=== PATIENT | male | born 1960 | race Caucasian/White ===

== ENCOUNTER 2017-02-05 09:28 | Emergency (ER) | payer SELFPAY ==
[~2017-02-05] VITALS: Ht 175.3 cm; Wt 77.0 kg
[2017-02-05 09:30] VITALS: BP 138/83; PULSE 56; RESP 20; TEMP 97.7; O2SAT 99
--- NOTE | 2017-02-05 09:55 | PD ---
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 Patient has minimal pain or discomfort. He is here mainly for a tetanus shot. He states the nail was quite dk. It did go through the sneaker and sock. He has no known drug allergies. [facility] Social History Alcohol Use: Yes Tobacco Use: Yes Substance Use: No Allergies-Medications (Allergen,Severity, Reaction): Coded Allergies: No Known Allergies (Unverified , 02/05/17) Reported Meds & Prescriptions Reported Meds & Active Scripts Active No Active Prescriptions or Reported Medications Review of Systems Except as stated in HPI: all other systems reviewed are Neg General / Constitutional: No: Fever Eyes: No: Visual changes HENT: No: Headaches Cardiovascular: No: Chest Pain or Discomfort Respiratory: No: Shortness of Breath Gastrointestinal: No: Abdominal Pain Genitourinary: No: Dysuria Musculoskeletal: No: Pain Skin: No Rash Neurologic: No: Weakness Psychiatric: No: Depression Endocrine: No: Polydipsia Hematologic/Lymphatic: No: Easy Bruising Physical Exam Narrative GENERAL: Patient is in no acute distress. SKIN: Warm and dry. Patient is a single superficial puncture wound to the middle sole of the left foot with a small amount of localized bleeding. No other significant findings. HEAD: Atraumatic. Normocephalic. EYES: Pupils equal and round. No scleral icterus. No injection or drainage. ENT: No nasal bleeding or discharge. Mucous membranes pink and moist. Pharynx is clear. CARDIOVASCULAR: Regular rate and rhythm. RESPIRATORY: No accessory muscle use. Clear to auscultation. Breath sounds equal bilaterally. MUSCULOSKELETAL: Extremities without clubbing, cyanosis, or edema. No obvious deformities. NEUROLOGICAL: Awake and alert. No obvious cranial nerve deficits. Motor grossly within normal limits. Five out of 5 muscle strength in the arms and legs. Normal speech. PSYCHIATRIC: Appropriate mood and affect; insight and judgment normal. Data Data Last Documented VS Vital Signs Date Time Temp Pulse Resp B/P Pulse Ox O2 Delivery O2 Flow Rate FiO2 02/05/17 09:30 97.7 56 20 138/83 99 Room Air MDM Medical Decision Making Medical Screen Exam Complete: Yes Emergency Medical Condition: Yes Differential Diagnosis Puncture wound. Foot injury. Need for tetanus shot. Narrative Course Patient is medically stable at time of exam. Patient's foot was soaked in 10% Betadine and saline solution for 10 minutes. Tetanus was given IM. Wound care is discussed with the patient, and he should follow-up immediately with any signs of infection. Diagnosis Primary Impression: Puncture wound of left foot Patient Instructions: General Instructions, Puncture Wound (ED), Tetanus (ED) Additional Instructions: Patient's foot was soaked in 10% Betadine and saline solution for 10 minutes. Tetanus was given IM. Wound care is discussed with the patient, and he should follow-up immediately with any signs of infection. Scripts No Active Prescriptions or Reported Meds Disposition: 01 DISCHARGE HOME Condition: Stable Michele Loo Feb 05, 2017 09:55
[2017-02-05] MEDS ORDERED: TETANUS/DIPHTHERIA TOXOID ADULT 0.5 ML VIAL IM ONE (10:00)
== END 2017-02-05 10:42 | disposition home or self-care (01) ==
LOC: NEPK 09:28
DX: S91.332A Puncture wound without foreign body, left foot, initial encounter (principal); Z23 Encounter for immunization; W22.8XXA Striking against or struck by other objects, initial encounter; Y93.89 Activity, other specified; Y92.89 Other specified places as the place of occurrence of the external cause; Y99.0 Civilian activity done for income or pay; Z72.0 Tobacco use
CPT/HCPCS: 90471; 90714